=== PATIENT | female | born 1965 | race Caucasian/White ===

== ENCOUNTER 2019-06-24 13:15 | Emergency (ER) | payer OTHER ==
[~2019-06-24] VITALS: Ht 157.5 cm; Wt 61.2 kg
[2019-06-24 13:22] VITALS: Ht 157.5 cm; Wt 61.2 kg
[2019-06-24 13:42] LABS: BASOPHIL % 0.7 % (0-2)
[2019-06-24 13:48] LABS: PLATELET COUNT 99 x10^3mcL (130-400)
[2019-06-24 13:49] LABS: CALCIUM 8.9 mg/dL (8.5-10.1); CARBON DIOXIDE 23.8 mmol/L (21-32); CHLORIDE SERUM 99 mmol/L (98-107); CREATININE SERUM 0.7 mg/dL (0.6-1.0); GFR1 > 60 mL/min; GLUCOSE SERUM 78 mg/dL (74-106); POTASSIUM SERUM 3.5 mmol/L (3.5-5.1); SODIUM SERUM 139 mmol/L (136-145)
[2019-06-24 13:54] LABS: ALBUMIN 4.2 g/dL (3.4-5.0); ALKALINE PHOSPHATASE 108 U/L (46-116); ALT/SGPT 43 U/L (14-59); AST/SGOT 58 U/L (15-37); BILIRUBIN TOTAL 1.5 mg/dL (0.20-1.00); TOTAL PROTEIN, SERUM 8.1 g/dL (6.4-8.2)
[2019-06-24 14:40] LABS: AMPHETAMINE QUAL UR NONE DETECTED (See below)
[2019-06-24 15:52] VITALS: BP 134/81
== END 2019-06-24 15:52 | disposition home or self-care (01) ==
LOC: ED 13:15
PROVIDERS: Emergency Medicine
DX: F41.9 Anxiety disorder, unspecified (principal); R07.89 Other chest pain; F17.210 Nicotine dependence, cigarettes, uncomplicated
CPT/HCPCS: 99406; J2060; J7030